=== PATIENT | male | born 1940 | race Caucasian/White ===

== ENCOUNTER 2024-03-13 19:10 | Emergency (ER) | payer OTHER, SELFPAY ==
[2024-03-13 19:18] VITALS: BP 162/89
[2024-03-13 19:47] VITALS: BMI 28.8
[2024-03-13 20:12] LABS: % Basophils 0.4 % (0-2); % Eosinophils 4.4 % (0-6); % Immature Granulocytes 0.6 % (0-0.5); % Lymphocytes 17.4 % (20.5-51.1); % Monocytes 11.5 % (1.7-9.3); % Neutrophils 65.7 % (42.2-75.2); Absolute Eosinophils 0.4 10^3/uL (0-0.7); Absolute Immature Granulocytes 0.1 10^3/uL (0-0.05); Absolute Lymphocytes 1.8 10^3/uL (1.2-3.4); Absolute Monocytes 1.2 10^3/uL (0.1-0.6); Absolute Neutrophils 6.6 10^3/uL (1.4-6.5); Hematocrit 37.8 % (39.0-52.0); Hemoglobin 12.8 g/dL (13.0-18.0); Mean Corp Hgb Conc. 33.9 g/dL (33.0-37.0); Mean Corpuscular Hgb 29.5 pg (27.0-31.0); Mean Corpuscular Volume 87.1 fL (80.0-94.0); Mean Platelet Volume 8.9 fL (7.4-10.4); Nucleated Red Blood Cells % 0 % (-); Platelet Count 296 10^3/uL (130-400); Red Blood Cell Count 4.34 10^6/uL (4.70-6.10); Red Cell Dist. Width 16.4 % (11.5-14.5)
[2024-03-13 20:18] VITALS: BP 158/75
[2024-03-13 20:29] LABS: INR 1.83; PT 21.4 Sec (11.4-14.6)
[2024-03-13 20:43] LABS: ALT (SGPT) 14 U/L (0-50); AST (SGOT) 28 U/L (17-59); Albumin 4.2 g/dl (3.5-5.0); Alkaline Phosphatase 100 U/L (38-126); Blood Urea Nitrogen 24 mg/dl (9-20); Calcium 9.4 mg/dl (8.4-10.2); Carbon Dioxide 23 mmol/L (22-30); Chloride 98 mmol/L (98-107); Estimated Creatinine Clearance 58 ml/min; Glucose 98 mg/dl (70-99); Potassium 4.4 mmol/L (3.5-5.1); Sodium 134 mmol/L (135-145); Total Bilirubin 0.5 mg/dl (0.2-1.3); Total Protein 7.4 g/dl (6.3-8.2); eGFR > 60.00
[2024-03-13 21:00] VITALS: BP 134/63
--- NOTE | 2024-03-13 21:40 | ED.GENMED ---
History of Present Illness
General
Chief Complaint: Fall
Source: patient and spouse
Exam Limitations: none
Time Seen by Provider: 03/13/24 19:40
Nursing documentation reviewed up to this point in time: agreed with
History of Present Illness
History of Present Illness:
83-year-old male presents emergency room complaining of falling backwards and that hitting the back of his head, and then falling forward and hitting his face. He hit his nose and has a nosebleed. He also has multiple scrapes and bruises on his
bilateral forearms and right lower leg.
Past History
Past History
ED Past Medical History: Arrthythmia (atrial fibrillation), CAD and COPD
ED Past Surgical History: Cardiac (2 cardiac stents) and Orthopedic (Bilateral hip replacement)
Social History
Tobacco: Non-smoker
Alcohol: None
Drug: None
Personal:
Review of Systems
Review of Systems
Allergies reviewed?: Yes
All Other Systems: Not applicable
Constitutional: Reports no symptoms
EENT: Reports other (Nosebleed)
Respiratory: Reports no symptoms
Cardiac: Reports no symptoms
ABD/GI: Reports no symptoms
: Reports no symptoms
Musculoskeletal: Reports no symptoms
Skin: Reports other (Abrasion)
Neurological: Reports no symptoms
Endocrine: Reports no symptoms
Hematologic/Lymphatic: Reports no symptoms
Psychiatric: Reports no symptoms
Phy Exam
Physical Exam
Physical Exam:
Physical Exam
General: no apparent distress, not acutely ill
Neck: supple. no meningeal signs. normal posterior pharynx
Heart: s1/s2 regular rate and rhythm, no murmur. equal radial
pulses.
HEENT: Pupils equal round reactive to light, EOMI, nosebleed bilateral controlled, abrasion on anterior nose
Lungs: no acute respiratory distress. clear bilaterally
Abdomen: normal bowel sounds. not tender. no CVAT
Neuro: alert and oriented. no focal neurological deficits cranial nerves II through XII intact
Skin: no rash
Psychiatric: well kept. interactive and cooperative
Extremities: no edema. no calf tenderness. negative homans. good distal pulses
Course
Orders/Labs/Results
Orders:
Orders
03/13/24 19:36
CT Facial Bones W/o Iv Contras Urgent
Comment:
Reason For Exam: fall on coumadin
03/13/24 19:47
CT Head W/o Iv Contrast Urgent
Comment:
Reason For Exam: fall, hit head, on coumadin
03/13/24 20:00
Complete Blood Count/With Diff Urgent
Comprehensive Metabolic Panel Urgent
INR [Prothrombin Time] Urgent
Abnormal Lab Results
03/13/24
20:00
RBC 4.34 L 10^6/uL
(4.70-6.10)
Hgb 12.8 L g/dL
(13.0-18.0)
Hct 37.8 L %
(39.0-52.0)
RDW 16.4 H %
(11.5-14.5)
Abs Immat Gran (auto) 0.1 H 10^3/uL
(0-0.05)
Absolute Neuts (auto) 6.6 H 10^3/uL
(1.4-6.5)
Absolute Monos (auto) 1.2 H 10^3/uL
(0.1-0.6)
Immature Gran % 0.6 H %
(0-0.5)
Lymphocytes % 17.4 L %
(20.5-51.1)
Monocytes % 11.5 H %
(1.7-9.3)
PT 21.4 H Sec
(11.4-14.6)
Sodium 134 L mmol/L
(135-145)
BUN 24 H mg/dl
(9-20)
03/13/24 20:00
03/13/24 20:00
Vital Signs
Initial and Last Documented VS:
Initial Vital Signs
Temp Pulse Resp BP Pulse Ox
98.3 F 71 20 162/89 99
03/13/24 19:18 03/13/24 19:18 03/13/24 19:18 03/13/24 19:18 03/13/24 19:18
Last Documented Vital Signs
Temp Pulse Resp BP Pulse Ox
98.3 F 73 15 134/63 97
03/13/24 19:18 03/13/24 21:01 03/13/24 21:00 03/13/24 21:00 03/13/24 21:00
MDM/Problems Addressed
Differential Diagnosis Includes:
Intracranial hemorrhage, septal hematoma, nasal fracture
MDM/Problems Addressed:
83-year-old male with nasal fracture, epistaxis, skin tears.
Chronic conditions affecting care: Arrhythmia
Acute Exacerbation and/or Progression of Chronic Illness: Arrhythmia
*Radiology
Radiology exam reviewed: radiology read reviewed (CT head no acute findings)
*Pulse Oximetry
Patient hypoxic: no
*Critical Care Note
Total Time (30-74mins, 75-104mins- exclusive of procedures): Not Applicable
Patient Management
Social determinants of health affecting care: Living situation
Discussion with other providers: [employer] (ENT, Dr. Cage will see patient at 1:45 PM tomorrow, recommends antibiotics for blood in sinuses)
Escalation/DeEscalation of care consider admission/obs:
Admit not indicated
ED Attending Note
-
Portions of this chart may have been created with voice recognition software.� Occasional wrong word or��sound alike� substitutions may have occurred due to the inherent limitations of voice recognition software.
Discharge Plan
Departure
Patient Disposition: Home (Routine Discharge)
Date of Disposition: 03/13/24
Time of Disposition: 21:52
Patient with high blood pressure during this ER visit?: Yes
Condition: Good
Discharge Problem:
Fracture closed, nasal bone, Acute anterior epistaxis, Multiple skin tears
Instructions: Wound Care (DC), Preventing falls in adults, Nose Fracture (DC), Nosebleeds (DC), Wound Care ED, BLOOD PRESSURE
Prescriptions:
New
amoxicillin 500 mg capsule
500 mg PO TID Qty: 15 0RF
No Action
Alfuzosin HCl
10 mg PO DAILY
aspirin [Ecotrin Low Strength] 81 MG tablet,delayed release (DR/EC)
81 mg PO DAILY
metformin 1,000 MG tablet
1,000 mg PO BID
Lactobacillus acidophilus [Acidophilus] 1 CAP capsule
1 cap PO DAILY
quinine-vitamin E 1 CAP capsule
2 cap PO DAILY
vit G30-LU-add D3-calc cit-Zn 1 EACH capsule
2,500 mcg PO DAILY
Colace
400 mg PO DAILY
Coumadin
5 mg PO .THURS,SAT,SUN
Coumadin
2.5 mg PO .MON,, SUN, FRI
Fish Oil
1,400 mg PO DAILY
Magnesium
500 mg PO DAILY
Metoprolol
25 mg PO BID
Patient Comments:
Pt unsure of dose.
Potassium
595 mg PO DAILY
Pravastatin Sodium
20 mg PO DAILY
Vitamin D3
1 tab PO DAILY
mirabegron [Myrbetriq] 25 MG tablet extended release 24 hr
25 mg PO DAILY
guaifenesin [Mucus Relief ER] 600 MG tablet extended release 12hr
600 mg PO Q12 Qty: 0 0RF
oxycodone-acetaminophen 5 MG/325 MG tablet
1 tab PO Q6HPRN PRN (Reason: PAIN) Qty: 40 0RF
famotidine 20 MG tablet
20 mg PO DAILY Qty: 30 0RF
furosemide 20 MG tablet
20 mg PO DAILY Qty: 5 0RF
Referrals:
Willie Akhtar DO [Family Provider] - Call in 1-3 days for appt
Rogelio Cage MD [Active] - 03/14/24 1:45 pm
Interventions
Interventions:
*Risk Screen - Suicide Last Done: 03/13/24 19:18
*General Assessment Last Done: 03/13/24 19:18
*Neglect/Abuse Screening Last Done: 03/13/24 19:18
ED- Fall Risk Assessment Last Done: 03/13/24 19:18
*ED COVID-19 Vaccine History Last Done: 03/13/24 19:18
ED-EENT Assessment Last Done: 03/13/24 19:47
ED-Musculoskeletal Assessment Last Done: 03/13/24 19:47
ED- Neurological Assessment Last Done: 03/13/24 19:47
ED-Skin Assessment Last Done: 03/13/24 19:47
Discharge Date and Time
Print Language: GRENADIAN
[2024-03-13 22:00] VITALS: BP 144/79
[2024-03-13] MEDS: AMOXIL 500 MG PO (22:29)
[2024-03-13] MEDS: ADACEL 0.5 ML IM (22:29)
== END 2024-03-13 22:45 | disposition home or self-care (01) ==
LOC: EMR 19:10
PROVIDERS: Emergency Medicine; EMERGENCY PHYSICIAN Emergency Medicine; FAMILY PHYSICIAN Family Medicine
DX: S02.2XXA Fracture of nasal bones, initial encounter for closed fracture (principal); S50.12XA Contusion of left forearm, initial encounter; S50.11XA Contusion of right forearm, initial encounter; S80.11XA Contusion of right lower leg, initial encounter; S00.31XA Abrasion of nose, initial encounter; W19.XXXA Unspecified fall, initial encounter; I25.10 Atherosclerotic heart disease of native coronary artery without angina pectoris; I48.91 Unspecified atrial fibrillation; J44.9 Chronic obstructive pulmonary disease, unspecified; Z79.01 Long term (current) use of anticoagulants; Z95.5 Presence of coronary angioplasty implant and graft; Z23 Encounter for immunization
CPT/HCPCS: 70450; 70486; 80053; 85025; 85610; 90471; 90715; 99284

== ENCOUNTER 2025-01-21 21:12 | Inpatient (IN) | payer OTHER, SELFPAY ==
[2025-01-21] VITALS (48 sets, daily range): BP systolic 119–192; BP diastolic 44–87
--- NOTE | 2025-01-21 18:06 | ED.GENMED ---
History of Present Illness
General
Chief Complaint: Fall
Source: ambulance crew
Exam Limitations: none
Time Seen by Provider: 01/21/25 17:53
Nursing documentation reviewed up to this point in time: agreed with
History of Present Illness
History of Present Illness:
84-year-old male presents to the emergency department due to a fall and weakness. He had fallen earlier, and is unclear if he had fallen when he got home. EMS noticed over the past 15 to 20 minutes that he has been increasingly confused and less
responsive.
Past History
Past History
ED Past Medical History: Arrthythmia (atrial fibrillation), CAD and COPD
ED Past Surgical History: Cardiac (2 cardiac stents) and Orthopedic (Bilateral hip replacement)
Social History
Tobacco: Non-smoker
Alcohol: None
Drug: None
Personal:
Review of Systems
Review of Systems
Allergies reviewed?: Yes
All Other Systems: Not applicable
Phy Exam
Physical Exam
Physical Exam:
Physical Exam
General: Confused, not answering questions, drowsy
Neck: supple. no meningeal signs. normal posterior pharynx
Heart: s1/s2 regular rate and rhythm, no murmur. equal radial
pulses.
HEENT: Pupils equal round reactive to light, EOMI
Lungs: no acute respiratory distress. clear bilaterally
Abdomen: normal bowel sounds. not tender. no CVAT
: sargent catheter in place
Neuro: drowsy. no focal neurological deficits cranial nerves II through XII intact
Skin: no rash
Psychiatric: Confused, questions
Extremities: no edema. no calf tenderness. negative homans. good distal pulses
Course
Orders/Labs/Results
Orders:
Orders
01/21/25 18:01
CT HEAD STROKE ALERT W/o Cont Urgent
Comment:
Reason For Exam: fall, altered mental status
Cardiac Monitoring- Treatment ONCE
IV Insert/Care/Rem.- Treatment PRN
01/21/25 18:07
Electrocardiogram (*1) Urgent
Reason for Study: TIA/Stroke
EKG- Treatment ONCE
01/21/25 18:11
Complete Blood Count/With Diff Urgent
Comprehensive Metabolic Panel Urgent
PTT Urgent
Prothrombin Time Urgent
Triglycerides Urgent
Comment: ADD ON
Troponin I Urgent
01/21/25 18:50
Portable Chest Xray [CR Chest Portable - 1 View] Urgent
Comment:
Reason For Exam: intubation
Reason Study Needs to be Portable: Patient Unstable
01/21/25 18:52
FentaNYL 1,000 MCG/100 ML [Sublimaze] 1,000 mcg in 100 ml IV NOW
Indication:: Light Sedation
Begin Infusion:: Now
Goal:: pain score </= 1, CPOT 0-2
Maximum dose in mcg/hr:: 300
Initial Dose in mcg/hr:: 50
Titration Instructions:: Titrate every 30 minutes if patient exhibits signs of pain or discomfort
Titration Instructions:: (pain score >/= 2, CPOT >/= 3).
Titration Instructions:: Administer bolus dose and increase infusion by 25 mcg/hr.
Taper Instructions:: If pain score at goal for 4 consecutive hours (pain score </= 1, CPOT 0-2)
Taper Instructions:: decrease infusion by 50 mcg/hr every 2 hours.
Taper Instructions:: When dose </= 50 mcg/hr may turn infusion off and consider PRN
Taper Instructions:: intermittent bolus doses only.
Over-sedation Instructions:: If CPOT 0-2 (goal) and RASS -3 to -5 (below goal) decrease sedative by 50%
Over-sedation Instructions:: first. If pain score remains at goal and RASS remains below goal in 1 hour,
Over-sedation Instructions:: decrease opioid infusion by 50%.
Notify provider:: immediately if pt exhibits: chest wall rigidity, hemodynamic instability,
Notify provider:: agitation/pain despite maximum dosing, pain when RASS below goal.
Additional Instructions:: Patient MUST be mechanically ventilated.
Fentanyl Citrate/Pf [Sublimaze] 50 mcg IV [id number] PRN
Fentanyl Citrate/Pf [Sublimaze] 80 mcg IV NOW STA
Propofol 1,000,000 Mcg/100 ml [Diprivan] 1,000,000 mcg in 100 ml .ROUTE .STK-MED
Propofol 1,000,000 Mcg/100 ml [Diprivan] 1,000,000 mcg in 100 ml IV NOW
Indication:: Light Sedation
Begin Infusion:: Now
Goal:: RASS 0 to -2
Maximum dose in mcg/kg/min:: 50
Initial dose based on RASS:: Yes
If RASS is:: +1 or pt hemodynamically unstable (SBP < 90mmHg), initiate at 10 mcg/kg/min
If RASS is:: +2, initiate at 20 mcg/kg/min
If RASS is:: greater than or equal to +3, initiate at 30 mcg/kg/min
Titration Instructions:: Titrate by 5-10 mcg/kg/min every 5 minutes until RASS 0 to -2 achieved.
Taper Instructions:: If RASS is at or below goal for 4 consecutive hours decrease infusion by
Taper Instructions:: 5-10 mcg/kg/min every 2 hours to off.
Over-sedation Instructions:: If CPOT 0-2 (at goal) AND RASS -3 to -5 (below goal) decrease sedative by
Over-sedation Instructions:: 50% first. If pain score remains at goal and RASS remains below goal in
Over-sedation Instructions:: 1 hour, decrease opioid infusion by 50%.
Notify provider:: immediately if patient exhibits signs/symptoms of propofol-related
Notify provider:: infusion syndrome.
Additional Instructions:: Patient MUST be mechanically ventilated and MUST receive analgesia.
01/21/25 19:37
Levetiracetam Injectable [Keppra] 1,000 mg IV NOW STA
01/21/25 19:47
Add On- LAB Urgent
Tests Added?: triglycerides
01/21/25 20:43
Admit/Transfer Patient As Directed
Co-Sign Provider:
Level of Care: Inpatient admission
Assign to:: ICU
Physician / Group: Hospitalist
Diagnosis: ICH
Reason for Hospitalization: ICH
Expected length of stay greater than two midnights?: Yes
ELOS- Estimated Length of Stay in days: 2
I certify the patient meets the requirements for IP care: Yes
01/21/25 20:44
Code Status As Directed
Resuscitation Status: Do not resuscitate
Reached after discussion with pt or family/Healthcare POA: Yes
DNR Bracelet Application ONCE
PRN Pain Medication Management As Directed
May give lesser potent ordered pain med per pt: Yes
preference::
Protocol:: Medication orders for pain may be administered in a
manner that supports deferring to patient preference
when the pt is:
- Requesting an ordered lesser potent pain medication.
Least to most potent pain medications are defined
as: acetaminophen < NSAID < tramadol < opioids
(morphine, oxycodone, hydromorphone).
- Requesting a lesser dose of the same medication IF
ORDERED.
- Requesting a less intrusive route of administration
if both routes are prescribed by the provider (PO <
IV).
01/22/25 Breakfast
NPO
Reason for opting out of [employer] order writing: Provider Decision
Allow oral meds: No
Allow clear liquids: No
NPO with Ice Chips: No
Abnormal Lab Results
01/21/25
18:11
WBC 11.9 H 10^3/uL
(4.8-10.8)
RBC 3.20 L 10^6/uL
(4.70-6.10)
Hgb 9.1 L g/dL
(13.0-18.0)
Hct 27.1 L %
(39.0-52.0)
RDW 17.8 H %
(11.5-14.5)
Abs Immat Gran (auto) 0.1 H 10^3/uL
(0-0.05)
Absolute Neuts (auto) 7.8 H 10^3/uL
(1.4-6.5)
Absolute Monos (auto) 1.3 H 10^3/uL
(0.1-0.6)
Immature Gran % 0.7 H %
(0-0.5)
Lymphocytes % 19.9 L %
(20.5-51.1)
Monocytes % 11.2 H %
(1.7-9.3)
Sodium 129 L mmol/L
(135-145)
BUN 30 H mg/dl
(9-20)
Glucose 152 H mg/dl
(70-99)
POC Glucose 161 H mg/dl
(70-99)
01/21/25 18:11
01/21/25 18:11
Vital Signs
Initial and Last Documented VS:
Initial Vital Signs
Pulse Resp BP Pulse Ox
77 16 148/57 97
01/21/25 18:27 01/21/25 18:27 01/21/25 18:27 01/21/25 18:27
Last Documented Vital Signs
Pulse Resp BP Pulse Ox
62 16 124/54 99
01/21/25 21:50 01/21/25 21:50 01/21/25 21:50 01/21/25 21:50
Procedures
Intubations
Procedure completed by: Michael
Method of Intubation: glidescope
Tube size (cm): 8.0
Placement confirmed by: auscutation, CXR, capnography and direct visualization
Breath sounds after intubation: equal
Intubation complications: no complications
MDM/Problems Addressed
Differential Diagnosis Includes:
Seizure, intracranial hemorrhage
MDM/Problems Addressed:
84-year-old male with traumatic acute subdural hematoma. Intubated due to low GCS and to protect airway.
Chronic conditions affecting care: Cardiomyopathy and Arrhythmia
Acute Exacerbation and/or Progression of Chronic Illness: Cardiomyopathy and Arrhythmia
*Radiology
Radiology exam reviewed: radiology read reviewed (CT head shows large acute subdural hematoma with severe mass effect)
*Pulse Oximetry
SaO2: 95
Oxygen Mode of Delivery: Room air
Patient hypoxic: no
*EKG
Interpreted by ED Provider?: Yes
EKG Intrepretation Date: 01/21/25
EKG Intrepretation Time: 19:08
Interpretation: abnormal
Comparison EKG: changes noted
Heart Rate: 77
Rate: normal
Rhythm: a-fib
[place]: normal axis
Interval: normal interval
QRS Pattern: right bundle branch block
Ischemia: no ischemia
*Senior Estimator Interpretation
Rate: normal
Interpretation: abnormal
Heart Rate: 80
Rhythm: a-fib
*Critical Care Note
Total Time (30-74mins, 75-104mins- exclusive of procedures): 80
comment:
Critical care statement: A total of 80 minutes of critical care time was provided for this patient. This includes management of unstable vital signs, evaluation of the patient at bedside, reviewing the patient's pertinent medical records, discussion
with consultants, review of old EKGs and review of pertinent medical records. This time with separate from time utilized to perform the aforementioned documented procedures
Patient Management
Social determinants of health affecting care: Living situation and Strong social support
Update Note
Update Note:
Discussed with neurosurgery at [facility], Dr. Lamb, states injury is not survivable. Family agrees to comfort care. Patient will be admitted to ICU until daughter comes from [place].
ED Attending Note
-
Portions of this chart may have been created with voice recognition software.� Occasional wrong word or��sound alike� substitutions may have occurred due to the inherent limitations of voice recognition software.
Discharge Plan
Departure
Patient Disposition: Admit
Date of Disposition: 01/21/25
Time of Disposition: 18:54
Admit to: ICU
Presentation/result/management discussed w/ accepting MD/DO: Hospitalist
Patient with high blood pressure during this ER visit?: Yes
Condition: Critical
Discharge Problem:
Acute subdural hematoma
Interventions
Interventions:
*Risk Screen - Suicide Last Done: 01/21/25 18:07
*General Assessment Last Done: 01/21/25 18:07
*Neglect/Abuse Screening Last Done: 01/21/25 18:07
*ED- Fall Risk Assessment Last Done: 01/21/25 18:07
ED-Musculoskeletal Assessment Last Done: 01/21/25 18:34
ED- Neurological Assessment Last Done: 01/21/25 19:01
ED-Skin Assessment Last Done: 01/21/25 18:07
[2025-01-21 18:13] LABS: Glucose - Point of Care 161 mg/dl (70-99)
[2025-01-21 18:17] LABS: Hematocrit 27.1 % (39.0-52.0); Hemoglobin 9.1 g/dL (13.0-18.0); Mean Corp Hgb Conc. 33.6 g/dL (33.0-37.0); Mean Corpuscular Volume 84.7 fL (80.0-94.0); Nucleated Red Blood Cells % 0 % (-); Platelet Count 243 10^3/uL (130-400); Red Cell Dist. Width 17.8 % (11.5-14.5)
[2025-01-21 18:27] LABS: APTT 31.3 Sec (23.4-35.0); INR 1.07; PT 14.4 Sec (11.4-14.6)
[2025-01-21 18:36] LABS: ALT (SGPT) 13 U/L (0-50); AST (SGOT) 30 U/L (17-59); Albumin 4.5 g/dl (3.5-5.0); Alkaline Phosphatase 119 U/L (38-126); Blood Urea Nitrogen 30 mg/dl (9-20); Calcium 9.3 mg/dl (8.4-10.2); Carbon Dioxide 23 mmol/L (22-30); Chloride 99 mmol/L (98-107); Glucose 152 mg/dl (70-99); Potassium 3.9 mmol/L (3.5-5.1); Sodium 129 mmol/L (135-145); Total Protein 8.2 g/dl (6.3-8.2); eGFR > 60.00
[2025-01-21 18:42] LABS: Troponin I 0.025 ng/ml
--- NOTE | 2025-01-21 18:52 | EDRN ---
184 Patient's at bedside and daughter present vis speakerphone decided to have the patient intubated and transferred to [facility] for trauma care
1846 - 30mg etomidate IVP given
1846 - 80mg Gilberto IVP given.
1848 - Intubation with 8.0 22 at the lip. Positive color change on CO detector, bilateral breath sounds, and portable CXR
--- NOTE | 2025-01-21 19:02 | PHANOTE ---
01/21/2025, pt. intubated at time of interview; pt. arrived w/ a med. list with the names and strengths of his medications but no frequencies; used pharmacy records and pt.'s own home med. list to compile a list of pt.'s meds.; ecw records are
outdated; spouse does not know pt.'s meds.; could not confirm meds. w/ pt.
[2025-01-21] MEDS: SUBLIMAZE 80 MCG IV (19:15)
[2025-01-21] MEDS: SUBLIMAZE 100 IV (19:16)
[2025-01-21] MEDS: DIPRIVAN 100 IV (19:20)
[2025-01-21] MEDS: KEPPRA 1000 MG IV (19:48)
[2025-01-21 20:24] LABS: Triglycerides 90 mg/dl (10-149)
--- NOTE | 2025-01-21 20:47 | HPS.HSE ---
Family Physician
-
Family Physician: NO INTERVIEW UNKNOWN
Chief Complaint
-
ICH
History of Present Illness
84yo M with PMHX of TAVR 6 weeks ago, CAD,HLD, DM brought with worsening lethargy started on the day of admission after he fell on his face. CT head showed ARGE ACUTE SUBDURAL HEMATOMA overlying the lateral convexities of the right frontal,
parietal, and temporal lobes causing SEVERE MASS EFFECT with right to left midline shift and effacement of the right lateral ventricle. After ED physician discussed it with [facility] neuroSx and family - decision made for comfort carer only, so
patient can stay in . Patient was intubated for protection of airways and family expecting additional members to arrive before extubation. meanwhile- agreeable for [facility] ialtions only for pain, anxiety relieve, no additional diagnostic tests and no
invasive procedures
Medical History
Past Medical History
Past Medical History: Reports Other
Additional Past Medical History:
See HPI
Past Surgical History: Reports Other
Additional Past Surgical History:
See HPI
Social History
Tobacco: Non-smoker
Alcohol: None
Drug: None
Family History
Family History: Not pertinent
Allergies / Home Medications
Allergies reflects when Allergies were last updated in [employer].
Home Medications with original date entered in [employer]
Allergy/Medication List:
Allergies
Allergy/AdvReac Type Severity Reaction Status Date / Time
No Known Allergies Allergy Verified 03/13/24 19:18
Home Medications
Lactobac no.2-Bifidobac no.1-S. thermo 112.5 billion cell capsule (Visbiome) 1 cap PO DAILY 01/21/25
Stool Softener 1 dose PO DAILY 01/21/25
Tylenol 1 dose PO .SEE BELOW 01/21/25
Vitamin C 1 dose PO DAILY 01/21/25
aspirin 81 mg tablet,delayed release 81 mg PO DAILY 01/21/25
cholecalciferol (vitamin D3) 1 dose PO DAILY 01/21/25
clopidogrel 75 mg tablet 75 mg PO DAILY 01/21/25
cyanocobalamin (vitamin B-12) 1 dose PO DAILY 01/21/25
empagliflozin 25 mg tablet (Jardiance) 25 mg PO DAILY 01/21/25
famotidine 40 mg tablet 40 mg PO DAILY 01/21/25
furosemide 20 mg tablet 20 mg PO MOWEFR 01/21/25
loratadine 10 mg tablet 10 mg PO DAILY 01/21/25
magnesium 1 dose PO DAILY 01/21/25
metformin 1,000 mg tablet 1,000 mg PO DAILY 01/21/25
pravastatin 40 mg tablet 40 mg PO DAILY 01/21/25
psyllium husk 1 dose PO DAILY 01/21/25
solifenacin 10 mg tablet 10 mg PO DAILY 01/21/25
Review of Systems
-
Unable to obtain full review of systems at this time due to: Patient Intubation
History Source: Family
Physical Exam
Vital Signs
Vital Signs
Pulse Resp BP Pulse Ox
58 16 151/60 99
01/21/25 20:25 01/21/25 20:25 01/21/25 20:25 01/21/25 20:25
Physical Exam
General: No Apparent Distress, Comfortable and Intubated
HEENT: Anicteric, Moist mucous membranes and [place] Conjunctivae
Respiratory: Clear; No Wheezes or Crackles
Cardiac: S1/S2 and Regular Rhythm; No Tachycardia
GI: Soft, Non Tender and Non Distended
Musculoskeletal: No Clubbing, No Cyanosis and No Edema
Skin: Warm; No Rash or Jaundice
Neuro: Sedated
Psych: Calm
Laboratory Results
-
01/21/25 18:11
01/21/25 18:11
Laboratory Results
PT 14.4 Sec (11.4-14.6) 01/21/25 18:11
INR 1.07 01/21/25 18:11
APTT 31.3 Sec (23.4-35.0) 01/21/25 18:11
Total Bilirubin 0.7 mg/dl (0.2-1.3) 01/21/25 18:11
AST 30 U/L (17-59) 01/21/25 18:11
ALT 13 U/L (0-50) 01/21/25 18:11
Alkaline Phosphatase 119 U/L (38-126) 01/21/25 18:11
Troponin I 0.025 ng/ml 01/21/25 18:11
Data Reviewed
-
CT Scan: Report Reviewed by me
Impression/Plan
-
A/P:
#ARGE ACUTE SUBDURAL HEMATOMA
#CAD
# s/p TAVR
#DM
overlying the lateral convexities of the right frontal, parietal, and temporal lobes causing SEVERE MASS EFFECT with right to left midline shift and effacement of the right lateral ventricle
Comfort care
DVT ppx not needed
DNR/No reintubation after extubation - discussed in details with bedside
I have spent 78min admitting the patient
[2025-01-21] MEDS: SUBLIMAZE 50 MCG IV (20:58)
--- NOTE | 2025-01-21 23:30 | PTCARENOTE ---
pt adm to ICU from ER, intubated/sedated. R pupil 6/L pupil 5, both fixed. no corneals. no gag noted, +cough with in line suctioning. RUE +decerebrate posturing, LUE no movement, B/L feet +Babinski. AFib HR 50s-60s. LAC IV x 2- arrived with Fent &
Prop gtts- Prop d/c'd per TELEHEALTH NURSE EDUCATOR, Fentanyl gtt continues as documented on work list. MV #8/Ett @25- verified by RT. suprapubic cath intact- cleansed at insertion site. CHG cloths. family at bedside updated.
[2025-01-21 23:35] LABS: Magnesium 2.3 mg/dl (1.6-2.3)
[2025-01-22] VITALS (38 sets, daily range): BP systolic 66–188; BP diastolic 41–68
--- NOTE | 2025-01-22 05:28 | PTCARENOTE ---
pt continues w/decerebrate posturing, no further changes in assessment.
[2025-01-22 07:21] LABS: COVID-19 Antigen Positive (Negative)
--- NOTE | 2025-01-22 07:39 | W.PN.HOSP.TC ---
Today's Communication/Plan
-
COVID isolation precautions
Await family arrival
Assessment / Plan
Assessment / Plan
Gen-sedated, intubated, NAD
HEENT-NC, AT, anicteric, clear oral mm
Neck-supple
CV-reg, no M, +S1/S2
Lungs-clear B/L
Abd-soft, NT, ND
Ext-no edema
Musculoskeletal-no cyanosis, clubbing
Skin-warm and dry
Acute hypoxic respiratory failure -intubated for airway protection due to large subdural hematoma with mass effect on presentation. Presented to the emergency room January 21, confused, not answering questions and drowsy.
Currently sedated on fentanyl alone. Discussed with nursing.
Admission chest x-ray with mild interstitial pulmonary edema. Moderate cardiomegaly.
Large acute subdural hematoma involving the right hemisphere. -Severe mass effect noted on CT with 1.6 cm right to left midline shift and effacement of the right lateral ventricle. Mild right to left anterior subfalcine herniation.
Family has opted for comfort measures and goal of terminal extubation when family arrives.
COVID-19 infection -unknown acuity.
Recent TAVR -6 weeks ago.
Hyponatremia -sodium 129.
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
Essential hypertension
DM2 without hyperglycemia
Hyperlipidemia
Chronic anemia
COPD without exacerbation
BRINDA
History of prostate cancer
DNR
[facility] is evaluating patient for potential liver donation.
Anticipated Discharge: Within 24 hours
Subjective/Interval History
-
Date of Service: January 22, 2025
Patient seen and examined. Sedated, intubated. Looks comfortable.
Objective Data
-
Vital Signs:
Vital Signs
Temp Pulse Resp BP Pulse Ox
97.3 F 52 16 103/52 100
01/22/25 03:46 01/22/25 06:00 07/10/25 06:00 01/22/25 06:00 01/22/25 06:00
I&O
01/21/25 01/22/25 01/23/25
06:59 06:59 06:59
Intake Total 35 / 35
Output Total 500 / 500
Balance -465 / -465
Review of Systems
-
Unable to obtain full review of systems at this time due to: Acuity and Patient Intubation
--- NOTE | 2025-01-22 07:40 | PTCARENOTE ---
Patient positive for covid. Placed on respiratory illness isolation precautions. Hospitalist notified.
--- NOTE | 2025-01-22 07:52 | CON.INTV ---
Consultation
Consultation Request
Date/Time Consultation Requested: 01/22
Date/Time Consultation Performed: 01/22
Reason for Consultation: Critical care
Medical History
-
History of Present Illness:
History obtained from the chart as patient is currently intubated unable to relay history. Hx obtained from by phone. 84-year-old male, brought to [facility] due to fall and weakness. Patient apparently had TAVR 6 weeks ago, history
of coronary disease, hyperlipidemia, diabetes. Patient fell forward, brought to the [facility]. EMS noted that patient was becoming progressively unresponsive. Upon arrival to [facility], pulse 77, breathing at 16, blood pressure
148/57, 97%. Imaging confirmed large subdural hematoma with midline shift. ED discussed with neurosurgery at [facility]. Reports suggest injury is nonsurvivable. Patient was intubated and admitted to ICU pending additional family arrival.
According to , patient was at [facility] earlier that day at cardiac rehab. He apparently had tripped on his way from the weight scale, landed on his head. He was sent on to the ED at [facility], and then sent home. Workup unclear.
Upon arrival to home, he was a little bit unsteady, did not fall according to his but leaned over to his side and was holding his head. For this reason insisted on coming to the ED. Patient did not want to but called EMS
.
PMH: Hypertension, hyperlipidemia, diabetes, coronary disease with OR CABG (Lian), history of TAVR 6 weeks ago at [facility], Hx of cardiac thrombus on 2023, Prostate Ca s/p xrt with [facility], pulmonary nodule on CXR
Past Medical History
Past Medical History: None (see above)
Past Surgical History: None (see above)
Social History
Tobacco: Former Smoker (25+ py, quit 1999)
Alcohol: None
Drug: None
Personal: ( for 13 yrs)
Living: With Family
Employment: Retired (pharmacy delivery driver, business)
Family History
Family History: Other (3 children healthy)
Allergies / Home Medications
Allergies
Allergy/AdvReac Type Severity Reaction Status Date / Time
No Known Allergies Allergy Verified 03/13/24 19:18
Home Medications
�Medication �Instructions �Recorded �Confirmed �Last Taken �Type
Lactobac no.2-Bifidobac no.1-S. 1 cap PO DAILY 01/21/25 Unknown History
thermo 112.5 billion cell capsule
(Visbiome)
Stool Softener 1 dose PO DAILY 01/21/25 Unknown History
Tylenol 1 dose PO .SEE BELOW 01/21/25 Unknown History
Vitamin C 1 dose PO DAILY 01/21/25 Unknown History
aspirin 81 mg tablet,delayed 81 mg PO DAILY 01/21/25 Unknown History
release
cholecalciferol (vitamin D3) 1 dose PO DAILY 01/21/25 Unknown History
clopidogrel 75 mg tablet 75 mg PO DAILY 01/21/25 Unknown History
cyanocobalamin (vitamin B-12) 1 dose PO DAILY 01/21/25 Unknown History
empagliflozin 25 mg tablet 25 mg PO DAILY 01/21/25 Unknown History
(Jardiance)
famotidine 40 mg tablet 40 mg PO DAILY 01/21/25 Unknown History
furosemide 20 mg tablet 20 mg PO MOWEFR 01/21/25 Unknown History
loratadine 10 mg tablet 10 mg PO DAILY 01/21/25 Unknown History
magnesium 1 dose PO DAILY 01/21/25 Unknown History
metformin 1,000 mg tablet 1,000 mg PO DAILY 01/21/25 Unknown History
pravastatin 40 mg tablet 40 mg PO DAILY 01/21/25 Unknown History
psyllium husk 1 dose PO DAILY 01/21/25 Unknown History
solifenacin 10 mg tablet 10 mg PO DAILY 01/21/25 Unknown History
Review of Systems
-
Unable to Obtain full review of systems at this time due to: Patient Intubation
History Source: Family
All other systems: Negative unless noted
Vitals / Labs / Diagnostic Testing
Vital Signs
Temp Pulse Resp BP Pulse Ox
97.3 F 52 16 102/52 100
01/22/25 03:46 01/22/25 07:00 01/22/25 07:00 01/22/25 07:00 01/22/25 07:49
Lab Data
01/21/25 18:11
01/21/25 18:11
Laboratory Results
01/21/25
18:11
PT 14.4
INR 1.07
APTT 31.3
Diagnostic Testing:
Physical Exam
-
HEENT: Normocephalic, Anicteric and Other (pupils sluggish)
Cardiovascular: S1/S2, Regular Rhythm, Murmur (n), Rub (n) and Peripheral Edema (n)
Respiratory: Wheeze (n), Rales (n), Rhonchi (n), Non-Labored Respirations and Other (ETT)
GI: Soft, Non Distended and Non Tender
Neurology: Other (sedated)
Skin: Good Color and Other (scattered bruising)
General: Comfortable
Assessment
-
84-year-old male with history of cardiac bypass surgery 2014 (Lian), coronary disease, hypertension, hyperlipidemia, diabetes, history of cardiac thrombus on anticoagulation 2023, now status post TAVR 6 weeks ago at [facility] on aspirin
and Plavix. Patient was at cardiac rehab on 01/21 at [facility], tripped while getting weight, landed on his face forward. Went to ED at that time, workup negative but unclear what the workup was. Upon arriving home at 4 PM, noted that he
was little bit more lethargic and unsteady. EMS was called. Patient found to have large subdural hematoma, not able to intervene per neurosurgery at [facility]. Intubated, admitted to ICU for further management
Acute large SDH, with midline shift
Status post fall 01/21/2025 at [facility]
Progressive lethargy, weakness
VDRF, intubated 01/21/2025
Positive COVID, 01/22/2025
Hyponatremia
Anemia
Hyperglycemia
Right bundle branch block
recent TAVR at [facility] (6wks BIOLOGICAL LAB TECHNICIAN)
History of cardiac thrombus 2023 treated with variety of anticoagulants
Details unclear
Resolved per
Conditions present prior to admission
Hypertension/hyperlipidemia
Diabetes
Distant tobacco history
Prostate cancer with radiation therapy, suprapubic catheter
DNR
Plan/recommendations
Patient remains critically ill, intubated on mechanical ventilation
Reviewed head CT images. ED discussion with neurosurgery at [facility], terminal event, no intervention available
Family has decided to eventually withdraw upon arrival of family members from [place]
Patient is an organ donor, [facility] has contacted the
Positive COVID noted
Moving forward
Continue with supportive care
Remains on fentanyl, maintain comfort
Suprapubic catheter in place, urine output noted
Remains on volume cycle ventilation, airway pressures adequate
Follow blood sugars
Await the arrival of family
Reviewed with critical care nursing, respiratory care
Updated and reviewed with at length by phone
TCCT 32 min
--- NOTE | 2025-01-22 09:30 | PTCARENOTE ---
Rec'd care of patient at 0700. Patient unresponsive. Posturing in response to stimulation. Right pupil +6mm, left pupil +5mm. No reaction to light observed. +Cough, gag, corneal reflexes. Afib on tele monitor. Rate in the 50's. +Murmur. +2 pitting
edema in b/l LE. Palpable pulses. #8.0 ett, positioned 25cm @ the lip. Vent settings: A/C 16/450/5/40%. RR-16. Pulse ox 100%. Lung sounds coarse/diminished. Hypo BS. No BM. Suprapubic catheter in place. [facility] bed bath provided and repositioned for
comfort. Fentanyl drip infusing through peripheral INT. See worklist for full assessment and care.
--- NOTE | 2025-01-22 12:25 | PTCARENOTE ---
No changes in assessment. at bedside. Awaiting arrival of patient's daughter. VSS.
--- NOTE | 2025-01-22 13:37 | PTCARENOTE ---
Patient's and daughter meeting with GOL coordinator.
[2025-01-22] MEDS: SUBLIMAZE 100 IV (14:55)
--- NOTE | 2025-01-22 16:03 | CM ---
Patient with Large subdural hemorrhage. Intubated. Immediately placed on comfort measures due to the size of SDH and poor prognosis. Family members visiting. Plan to extubate when family is ready.
--- NOTE | 2025-01-22 16:35 | PTCARENOTE ---
No major changes in assessment. Neuro status unchanged. RR -16. Lung sounds diminished throughout. Afib on tele. VSS.
--- NOTE | 2025-01-22 19:15 | PTCARENOTE ---
new ekg changes- pvcs, HR prev 50-60s, now 70-80s. SBP 180s. KFlahertyNP aware. call placed to [facility] to make aware.
[2025-01-22] MEDS: NEO-SYNEPHRINE 250 IV (21:38)
--- NOTE | 2025-01-22 21:42 | PTCARENOTE ---
BP 81/49 (59), KFlahertyNP aware, Chris gtt started per order.
[2025-01-23] VITALS (73 sets, daily range): BP systolic 74–176; BP diastolic 37–70
--- NOTE | 2025-01-23 03:15 | PTCARENOTE ---
pt with no protective reflexes noted, continues to be supported on Chris gtt. no further changes in assessment.
--- NOTE | 2025-01-23 07:52 | W.PN.INTV ---
Today's Communication / Plan
Recommendations
Obtain baseline blood work, baseline ABG with preoxygenation
Remains off sedation since 01/22
Continue pressors
Determination of brain later today, apnea test per protocol
Assessment
-
84-year-old male with history of cardiac bypass surgery 2014 (Lian), coronary disease, hypertension, hyperlipidemia, diabetes, history of cardiac thrombus on anticoagulation 2023, now status post TAVR 6 weeks ago at [facility] on aspirin
and Plavix. Patient was at cardiac rehab on 01/21 at [facility], tripped while getting weight, landed on his face forward. Went to ED at that time, workup negative but unclear what the workup was. Upon arriving home at 4 PM, noted that he
was little bit more lethargic and unsteady. EMS was called. Patient found to have large subdural hematoma, not able to intervene per neurosurgery at [facility]. Intubated, admitted to ICU for further management
Acute large SDH, with midline shift
Status post fall 01/21/2025 at [facility]
Progressive lethargy, weakness
VDRF, intubated 01/21/2025
Positive COVID, 01/22/2025
Hyponatremia
Anemia
Hyperglycemia
Right bundle branch block
recent TAVR at [facility] (6wks PALEONTOLOGICAL HELPER)
History of cardiac thrombus 2023 treated with variety of anticoagulants
Details unclear
Resolved per
Conditions present prior to admission
Hypertension/hyperlipidemia
Diabetes
Distant tobacco history
Prostate cancer with radiation therapy, suprapubic catheter
DNR
Plan/recommendations
Patient remains critically ill, intubated on mechanical ventilation
Has developed worsening neurological status, cough, gag reflex and corneal reflex now absent
Reviewed head CT images. ED discussion with neurosurgery at [facility], terminal event, no intervention available
Patient is an organ donor, [facility] has contacted the
Positive COVID noted
If no meaningful recovery or brain is determined, family would like to pursue organ donation as this was patient wishes
Moving forward
Continue with supportive care
Off sedation since 01/22 at approximately 8 PM
Neurological exam performed at 11 AM by myself with critical care nursing, family at bedside
Corneal reflex, gag reflex, cough reflex absent. Pupils equal and unresponsive at approximately 4 mm
Remains on volume cycle ventilation, airway pressures adequate
Brief transition to CPAP without evidence of spontaneous ventilation
Will obtain baseline blood work, baseline ABG on 100%
Reviewed brain protocol, apnea test at length with family at bedside
Will pursue second neurological exam just prior to apnea test this afternoon
Reviewed with critical care nursing, respiratory care, pharmacy
Reviewed with , daughter and grandchildren at bedside
TCCT 40 min
Subjective Dataa
Subjective Data
Date of Service:
Date of Service: January 23, 2025
Subjective:
Patient remains critically ill. Off sedation since around 8 PM 01/23. Has required initiation of phenylephrine. Neurological status has worsened, hemodynamics have become more labile, now bradycardic and hypotensive. No cough, no gag reflex, no
corneal reflex.
Objective Data
Data Reviewed
Vital Signs / I&O / Oxygen:
Vital Signs
Temp Pulse Resp BP Pulse Ox
98.4 F 53 16 125/51 99
01/23/25 03:11 01/23/25 06:30 01/23/25 06:30 01/23/25 06:30 01/23/25 06:30
Intake and Output
01/22/25 01/23/25 01/24/25
06:59 06:59 06:59
Intake Total 35 / 40 234 / 234
Output Total 500 / 500 1525 / 1525
Balance -465 / -460 -1291 / -1291
SaO2 [A/C] 100
SaO2 99
Physical Exam
General: Comfortable
HEENT: Normocephalic and Anicteric
Cardiovascular: S1-S2, Regular Rhythm, Murmur (n), Rub (n) and Peripheral Edema (n)
Respiratory: Wheeze (n), Crackles (n), Rhonchi (n) and Non-Labored Respirations
GI: Soft and Non Distended
Neurology: Unresponsive and Other (Pupils are equal and midline, not responsive, approximately 4 mm)
Skin: Good Color, Cyanosis (n), Jaundice (n) and Rash (n)
Labs/Micro/Reports
Lab Data
01/21/25 18:11
01/21/25 18:11
--- NOTE | 2025-01-23 08:09 | W.PN.HOSP.TC ---
Today's Communication/Plan
-
Continue current care
Assessment / Plan
Assessment / Plan
Gen-sedated, intubated, NAD
HEENT-NC, AT, anicteric, clear oral mm
Neck-supple
CV-reg, no M, +S1/S2
Lungs-clear B/L
Abd-soft, NT, ND
Ext-no edema
Musculoskeletal-no cyanosis, clubbing
Skin-warm and dry
Acute hypoxic respiratory failure -intubated for airway protection due to large subdural hematoma with mass effect on presentation. Presented to the emergency room January 21, confused, not answering questions and drowsy.
Currently sedated on fentanyl alone. Discussed with nursing.
Admission chest x-ray with mild interstitial pulmonary edema. Moderate cardiomegaly.
Large acute subdural hematoma involving the right hemisphere. -Severe mass effect noted on CT with 1.6 cm right to left midline shift and effacement of the right lateral ventricle. Mild right to left anterior subfalcine herniation.
Family has opted for comfort measures and goal of terminal extubation when family arrives.
COVID-19 infection -unknown acuity.
Recent TAVR -6 weeks ago.
Hyponatremia -sodium 129.
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
Essential hypertension
DM2 without hyperglycemia
Hyperlipidemia
Chronic anemia
COPD without exacerbation
BRINDA
History of prostate cancer
DNR
[facility] is evaluating patient for potential liver donation. Brain protocol per navy material inspector. Discussed with nursing.
Anticipated Discharge: 24 - 48 hours
Subjective/Interval History
-
Date of Service: January 23, 2025
Patient seen and examined. Remains sedated, intubated.
Objective Data
-
Vital Signs:
Vital Signs
Temp Pulse Resp BP Pulse Ox
98.4 F 53 16 125/51 99
01/23/25 03:11 01/23/25 06:30 01/23/25 06:30 01/23/25 06:30 01/23/25 06:30
I&O
01/22/25 01/23/25 01/24/25
06:59 06:59 06:59
Intake Total 35 / 40 234 / 234
Output Total 500 / 500 1525 / 1525
Balance -465 / -460 -1291 / -1291
Review of Systems
-
Unable to obtain full review of systems at this time due to: Acuity and Patient Intubation
[2025-01-23] MEDS: NEO-SYNEPHRINE 250 IV ×2 (08:56→20:35)
--- NOTE | 2025-01-23 09:15 | PTCARENOTE ---
Rec'd pt at 0800 resting in bed. No response to verbal stimuli. Pupils are non reactive at 4 mm. No corneal response. No cough or gag. No response to plantar stroke or nailbed pressure-however pt did randomly slightly move his head but not
consistently or reproducible. Skin is pale pink wm and dry. Bruising as noted on arms bilaterally and sl MASD in the groin. Respirs are intact on the vent. #8 Ett retaped at the 25 cm theo L side of the mouth. Vent settings AC 16, tv 450, peep 5.
Adding no additonal rate. BS are decreased and sl coarse posteriorly. O2 sats are 100%. Monitor AFib- Isolated PVC's. + pulses. +1 LE edema. VS as documented. Rec'd pt on IV Chris at 60 mcg- tried to decrease to 40 mcg but BP dipped to 80 syst so
patient currently back on 60 mcg. Abd is soft with Hypoactive BS. No stool noted. Suprapubic tube intact-site wnl. Draining yellow urine. Site care given. IV Chris infusing via L wrist IV site. Capped int intact L Forearm. Partial CHG bath and skin
care given. Oral care given. Turned and repositioned.
--- NOTE | 2025-01-23 10:30 | PTCARENOTE ---
Family in to see pt and updated- pts and Pts daughter. Plan of care reviewed. Dr. Henry to assess. Assessment overall is unchanged. Remains on IV Chris at 60 mcg. Did sl move his feet to plantar stroke and very sl head movement but not
reproducible. No cough or gag and no corneal response.
--- NOTE | 2025-01-23 12:30 | PTCARENOTE ---
Assessement unchanged. Pt does have random sl head movement but continues with no corneal, no cough, no gag and pupils are not reactive. Does sl move feet to plantar stroke but not consistently. Dr. Chaparro in to assess. VS as documented. Family at
the bedside and updated.
--- NOTE | 2025-01-23 13:20 | PTCARENOTE ---
Labs sent as ordered.
[2025-01-23 13:33] LABS: Hematocrit 25.1 % (39.0-52.0); Hemoglobin 8.5 g/dL (13.0-18.0); Mean Corp Hgb Conc. 33.9 g/dL (33.0-37.0); Mean Corpuscular Volume 85.1 fL (80.0-94.0); Platelet Count 202 10^3/uL (130-400); Red Cell Dist. Width 18.3 % (11.5-14.5)
--- NOTE | 2025-01-23 13:35 | PTCARENOTE ---
ABG sent per orders.
[2025-01-23 13:50] LABS: B.E. -2.1 mmol/L; HCO3 20.3 mmol/L (21-28); O2 Saturation % 99.5 % (94-98); PCO2 26 mmHg (35-48); PO2 325 mmHg (83-108)
[2025-01-23 13:59] LABS: ALT (SGPT) 12 U/L (0-50); AST (SGOT) 34 U/L (17-59); Albumin 3.5 g/dl (3.5-5.0); Alkaline Phosphatase 96 U/L (38-126); Blood Urea Nitrogen 20 mg/dl (9-20); Calcium 8.8 mg/dl (8.4-10.2); Carbon Dioxide 22 mmol/L (22-30); Chloride 107 mmol/L (98-107); Glucose 112 mg/dl (70-99); Potassium 3.3 mmol/L (3.5-5.1); Sodium 134 mmol/L (135-145); Total Protein 6.8 g/dl (6.3-8.2); eGFR > 60.00
--- NOTE | 2025-01-23 14:35 | PTCARENOTE ---
Dr. Chaparro updated on labs and ABG's. At 1420 pt changed to ASV 100%MV , Peep 5 Fio2 40% and currently 1435 decreased the minute ventilation to 80% from 100%. sats are 100%.
[2025-01-23] MEDS: KCL 270 MEQ IV (14:49)
--- NOTE | 2025-01-23 14:55 | PTCARENOTE ---
KCL 40 meq rider hung via L forearm per mD order.
--- NOTE | 2025-01-23 15:19 | CM ---
Intubated, per movement therapist: Determination of brain later today. Comfort measures.
[2025-01-23 16:34] LABS: B.E. -2.1 mmol/L; HCO3 22.2 mmol/L (21-28); O2 Saturation % 100.0 % (94-98); PCO2 35 mmHg (35-48); PO2 447 mmHg (83-108)
--- NOTE | 2025-01-23 16:50 | PTCARENOTE ---
Pt placed on 100% fio2 at 1600 and ABG sent as noted. Results given to Dr. Chaparro. Assessment is unchanged. Still with some intermittent head movement and foot movement to plantar stroke but inconsistent. Continues with no cough, gag, pupillary
response, corneal response. KCL rider infusing and IV Chris infusing - decreased to 15 mcg. Family at the bedside.
--- NOTE | 2025-01-23 17:18 | PTCARENOTE ---
Took over care of pt [id number].
Apnea test completed with Dr Chaparro and GRADUATE RESEARCH ASSISTANT. No spontaneous breathing. ABG sent.
Phenylephrine titrated up per protocol.
--- NOTE | 2025-01-23 17:19 | W.PN.UPDATE ---
Addendum entered and electronically signed by Faraz Chaparro MD 01/23/25 18:13:
TCCT 40 min
Original Note:
Update Note
Progress Note Update
Baseline ABG
Apnea test initiated, patient placed on max flow oxygen via cannula through ET tube. Disconnected from ventilator
Heart rate range from 47-62, systolic pressure ranged from 108-117, saturation 100%
No respirations observed for total of 11 minutes at which time ABG was obtained
ABG post-apnea test . No respirations were observed. No evidence of significant hypotension observed. Of note patient maintained on phenylephrine throughout test
According to targets as defined by apnea test for brain protocol at , pH less than 7.30 was met, paCO2 greater than 20mmHg from baseline was met. However, paCO2 greater than or equal to 60mmHg was not met. According to protocol, all 3 of
these parameters need to be met.
Will repeat apnea test
Updated family at length
Reviewed with critical care nursing and CCN supervisor aluminum boat assembly
[2025-01-23 17:23] LABS: B.E. -2.9 mmol/L; HCO3 24.6 mmol/L (21-28); O2 Saturation % 100.0 % (94-98); PCO2 56 mmHg (35-48); PO2 447 mmHg (83-108)
--- NOTE | 2025-01-23 19:23 | RESPNOTE ---
2nd Apnea test was performed at this time by placing the vent on STBY and 6 L right above the andrew. No resp efforts were observed and the PT was placed back on the vent after ABG was drawn (1937). PT was placed on ASV 100%/+5/40%. Will continue
to monitor.
[2025-01-23 19:44] LABS: B.E. -4.5 mmol/L; HCO3 24.3 mmol/L (21-28); O2 Saturation % 100.0 % (94-98); PCO2 65 mmHg (35-48); PO2 224 mmHg (83-108)
--- NOTE | 2025-01-23 19:46 | W.PN.UPDATE ---
Update Note
Progress Note Update
Procedure Note: Arterial Line�
� Right Wrist Arrow 20 (09/16)�
Diagnosis:��Apnea test; Covid PNA
IV Line Comments: Uneventful Procedure�
Cristopher's test completed pre-procedure: Yes�
A-Line Comments: Sterile technique as per standard protocol, Ultrasound guided insertion�
Functioning A-line in situ: Yes�
A-line Insertion Start Time:��1844
A-line in at:��1900
--- NOTE | 2025-01-23 20:16 | W.PN.DEATH ---
Pronouncement of
-
Called to see patient to pronounce.
No spontaneous heart tones or respirations noted.
Patient not responsive to verbal stimuli.
Patient is pronounced .
Time of : 19:38
Date of : 01/23/25
Cause of : Brain due to acute Subdural Hematoma from fall
Family Notified: Yes
--- NOTE | 2025-01-23 20:22 | W.PN.UPDATE ---
Update Note
Progress Note Update
Repeat apnea test
Reviewed at length with bill collector SPECIMEN TECHNICIAN
Baseline ABG
Apnea�initiated patient placed on max flow oxygen via cannula through ET tube. Disconnected from ventilator. Respiratory at bedside
Patient on phenylephrine.
Total apnea time 15 minutes
No evidence of hemodynamic instability, hypotension or hypoxia, or arrhythmia
ABG at 1937: 224
No respirations identified
Time of 1937
Family aware
Primary service notified
GOL notified
--- NOTE | 2025-01-23 20:40 | PTCARENOTE ---
Patient received in bed, family at bedside, IVONNE hughes
--- NOTE | 2025-01-23 23:07 | W.PN.DEATH ---
Pronouncement of
-
Time of : 19:38
Date of : 01/23/25
Cause of : Brain due to Acute Subdural Hematoma from fall
Family Notified: Yes
--- NOTE | 2025-01-23 23:57 | PTCARENOTE ---
Transport team arrived, patient transported to [facility]
--- NOTE | 2025-01-26 09:05 | CM ---
Patient 01/23/25 @ 19:38.
== END 2025-01-23 19:38 | disposition expired | DRG 82 ==
LOC: ICU 21:12
PROVIDERS: Nurse Practitioner Family; ADMITTING PHYSICIAN Internal Medicine; ATTENDING PHYSICIAN Hospitalist; CONSULT PHYSICIAN Internal Medicine Critical Care Medicine; EMERGENCY PHYSICIAN Emergency Medicine
PROC: 5A1945Z Respiratory Ventilation, 24-96 Consecutive Hours (ICD-10-PCS; 2025-01-21)
PROC: 0BH17EZ Insertion of Endotracheal Airway into Trachea, Via Natural or Artificial Opening (ICD-10-PCS; 2025-01-21)
PROC: 03HY32Z Insertion of Monitoring Device into Upper Artery, Percutaneous Approach (ICD-10-PCS; 2025-01-23)
DX: J96.01 Acute respiratory failure with hypoxia; U07.1 COVID-19; S06.A1XA Traumatic brain compression with herniation, initial encounter; J44.0 Chronic obstructive pulmonary disease with (acute) lower respiratory infection; E87.1 Hypo-osmolality and hyponatremia; J81.1 Chronic pulmonary edema; R53.1 Weakness; I25.10 Atherosclerotic heart disease of native coronary artery without angina pectoris; I48.91 Unspecified atrial fibrillation; Z51.5 Encounter for palliative care; I45.10 Unspecified right bundle-branch block; R91.1 Solitary pulmonary nodule; I10 Essential (primary) hypertension; D64.9 Anemia, unspecified; E78.5 Hyperlipidemia, unspecified; E11.65 Type 2 diabetes mellitus with hyperglycemia; I51.7 Cardiomegaly; J44.9 Chronic obstructive pulmonary disease, unspecified; G47.33 Obstructive sleep apnea (adult) (pediatric); W01.198A Fall on same level from slipping, tripping and stumbling with subsequent striking against other object, initial encounter; Y93.01 Activity, walking, marching and hiking; Y92.531 Health care provider office as the place of occurrence of the external cause; Z96.643 Presence of artificial hip joint, bilateral; Z66 Do not resuscitate; Z95.5 Presence of coronary angioplasty implant and graft; Z95.2 Presence of prosthetic heart valve; Z79.84 Long term (current) use of oral hypoglycemic drugs; I25.2 Old myocardial infarction; Z85.46 Personal history of malignant neoplasm of prostate; Z92.3 Personal history of irradiation; Z95.1 Presence of aortocoronary bypass graft; Z86.79 Personal history of other diseases of the circulatory system; Z87.891 Personal history of nicotine dependence; Z79.82 Long term (current) use of aspirin; Z79.02 Long term (current) use of antithrombotics/antiplatelets
CPT/HCPCS: 31500; 36600; 70450; 71045; 80053; 82805; 82962; 83735; 84100; 84443; 84478; 84484; 85025; 85027; 85610; 85730; 86850; 86900; 86901; 87811; 93005; 94002; 94003; 96374; 96375; 96376; 99291